=== PATIENT | female | born 1980 | race Caucasian/White ===

== ENCOUNTER 2016-06-15 23:28 | Inpatient (IN) | payer OTHER ==
--- NOTE | ~2016-06-15 | DS ---
Unit #: [id number] #: [id number] Patient: ROOPA MANE [id number] [facility] [address] [place] [address] [id number] I MR#: [id number] NAME: ROOPA MANE ROOM: 74 Age: 35 Sex: F Admission Date: 06/15/2016 : 1980 Discharge Date: 06/20/2016 Attending Physician: Chriss Cameron M.D. Primary Care Physician: Generic Doctor Not In System DISCHARGE SUMMARY REASON FOR ADMISSION The patient is a 34-year-old white female, admitted to the [facility] unit for opioid detox. HOSPITAL COURSE The patient was admitted to the [facility] unit and placed on routine detoxification protocol for opioids. Her stay in the hospital was a brief and uneventful one. She was initially exhibiting significant symptoms of withdrawal as well as dysphoria, but by 06/20/2016, the patient was much much brighter. She had made arrangements to go to [facility]" and discharge was ordered. FINAL DIAGNOSES Opioid use disorder. DISPOSITION ON DISCHARGE The patient is discharged on no psychotropic medications. She will continue Visine for dry eyes. DISCHARGE INSTRUCTIONS No dietary or physical restrictions were placed upon the patient at the time of discharge. FOLLOWUP Followup will take place through the auspices of community health resources. PROGNOSIS Her prognosis is considered fair. Dictated by... Chriss Cameron M.D. CB/mahesh TD: 06/21/2016 00:29 JOB #: [id number] Unit #: [id number] #: [id number] Patient: ROOPA MANE DISCHARGE SUMMARY X Chriss Cameron MD X DISCHARGE SUMMARY
--- NOTE | ~2016-06-15 | PN ---
Unit #: [id number] #: [id number] Patient: ROOPA MANE [id number] [facility] [address] [place] [address] [id number] I MR#: [id number] NAME: ROOPA MANE ROOM: 74 Age: 35 Sex: F Admission Date: 06/15/2016 : 1980 Attending Physician: Chriss Cameron M.D. Admitting Physician: Chriss Cameron M.D. Primary Care Physician: Kareem Doctor Not In System [facility] PROGRESS NOTES DATE 06/17/2016 DISCUSSION The patient continues to exhibit significant discomfort related to opioid withdrawal. She states today that she would like to go a treatment facility to allow her to have her two children with her. I have told her that the availability of such of a facility is to the knowledge of this physician no available to which the patient states that she is "fucked." We continue current detoxification treatment for the patient. It sounds as though she would be able to return to her brother's home upon discharge with intensive outpatient followup. Dictated by... Chriss Cameron M.D. CB/lindsey TD: 06/18/2016 00:43 JOB #: [id number] [facility] PROGRESS NOTES X Chriss Cameron MD PROGRESS NOTE
--- NOTE | ~2016-06-15 | PA ---
Unit #: [id number] #: [id number] Patient: ROOPA MANE [id number] [facility] [address] [place] [address] [id number] I MR#: [id number] NAME: ROOPA MANE ROOM: P174 Age: 35 Sex: F Admission Date: 06/15/2016 : 1980 Date of Assessment: 06/16/2016 Attending Physician: Chriss Cameron M.D. Admitting Physician: Chriss Cameron M.D. Primary Care Physician: Generic Doctor Not In System PSYCHIATRIC ASSESSMENT IDENTIFYING INFORMATION The patient is a 35-year-old white female admitted to the [facility] unit with the recurrence of opioid abuse. CHIEF COMPLAINT None given. INFORMANT The patient, reliability is fair. HISTORY OF PRESENT ILLNESS The patient is a 35-year-old white female last seen at this facility in September of 2015. She is readmitted reporting abuse of heroin for the past six months. She admitted using five grams of IV heroin on a daily basis. Per her report she had been clean and sober for eight years until she was given pain medications by her dentist. She is also reporting abuse of one to two bars of Xanax weekly and also reports occasional use of alcohol. The patient reported positive suicidal thoughts with plan to overdose. The patient has a master's degree in social work but is homeless and unemployed at this time secondary to her substance use. PAST PSYCHIATRIC HISTORY The patient was treated at this facility in September of 2015. PAST MEDICAL HISTORY Noncontributory. MEDICATIONS None. ALLERGIES None. FAMILY HISTORY Noncontributory. SOCIAL HISTORY The patient is currently homeless. Her substance use history is described previously and she is a smoker. Her education status is also described previously. MENTAL STATUS EXAMINATION At this time reveals the patient to be a soundly sleeping white female who Unit #: [id number] #: [id number] Patient: ROOPA MANE cannot aroused for further interview. ASSETS AND LIABILITIES ASSETS: High level of educational achievement. LIABILITIES: Homelessness, lack of resources. ADMITTING DIAGNOSES 1. Alcohol use disorder. 2. Opioid use disorder. 3. Dysthymic disorder. PSYCHIATRIC PLAN/TREATMENT GOALS The patient has been placed on detoxification protocol (1) both opioids and benzodiazepines. She will participate in appropriate see and milieu activities and suicidal precautions are in place. ESTIMATED LENGTH OF STAY Three to five days with followup to take place through the auspices of community mental health resources. Dictated by... Chriss Cameron M.D. DAVID/lindsey TD: 06/16/2016 23:30 JOB #: [id number] PSYCHIATRIC ASSESSMENT X Chriss Cameron MD X PSYCHIATRIC ASSESSMENT
--- NOTE | ~2016-06-15 | PN ---
Unit #: [id number] #: [id number] Patient: ROOPA MANE [id number] [facility] [address] [place] [address] [id number] I MR#: [id number] NAME: ROOPA MANE ROOM: [facility] Age: 35 Sex: F Admission Date: 06/15/2016 : 1980 Attending Physician: Chriss Cameron M.D. Admitting Physician: Chriss Cameron M.D. Primary Care Physician: Kareem Doctor Not In System [facility] PROGRESS NOTES DATE 06/19/2016 DISCUSSION The patient seems a bit brighter today but continues to complain of significant GI discomfort related to opiate withdrawal. I have spoken with her regarding possible a.m. discharge with IOP followup and she seems positive regarding this. Dictated by... Chriss Cameron M.D. CB/johanne TD: 06/19/2016 15:24 JOB #: [id number] [facility] PROGRESS NOTES X Chriss Cameron MD PROGRESS NOTE
--- NOTE | ~2016-06-15 | HP ---
Unit #: [id number] #: [id number] Patient: ROOPA MANE [id number] [place] [address] [id number] MR#: [id number] NAME: ROOPA MANE ROOM: P174 Age: 35 Sex: F Admission Date: 06/15/2016 : 1980 Attending Physician: Chriss Cameron M.D. Admitting Physician: Chriss Cameron M.D. Primary Care Physician: Generic Doctor Not In System HISTORY AND PHYSICAL HISTORY OF PRESENT ILLNESS The patient is a 35-year-old female admitted to [facility] on 06/15/2016 to withdrawal from heroin. PAST MEDICAL HISTORY 1. Obesity. 2. Heroin abuse. PAST SURGICAL HISTORY Gastric sleeve. SOCIAL HISTORY She is unemployed. She has a Masters in social work. She drinks six beers per week, uses five points of heroin per day and Xanax weekly. FAMILY MEDICAL HISTORY Noncontributory. ALLERGIES No known drug allergies. CURRENT MEDICATIONS The patient is not on any home medications. REVIEW OF SYSTEMS CONSTITUTIONAL: No fever or chills. HEENT: Denies any sore throat, ear pain or runny nose. CARDIOVASCULAR: Denies chest pain, irregular heart rhythm or palpitations. CHEST: Denies shortness of breath or cough. No hemoptysis. GASTROINTESTINAL: Denies nausea, vomiting, diarrhea or chronic constipation. ENDOCRINE: Denies history of increased thirst or urination. No recent significant weight loss or gain. GENITOURINARY: Denies dysuria, frequency, or hematuria. SKIN: Denies any rashes. HEMATOLOGIC: Denies history of increased bleeding or bruising. MUSCULOSKELETAL: Denies any hot, swollen joints. No generalized muscle pain. NEUROLOGIC: Denies problems with vision or speech. No frequent, severe headaches. No numbness, tingling or weakness in any extremities. Denies loss of bladder or bowel control. PHYSICAL EXAM Unit #: [id number] #: [id number] Patient: ROOPA MANE GENERAL: She is awake, alert and oriented in no acute distress. VITAL SIGNS: Temperature 98.2, heart rate 90, respiration 18, blood pressure 127/88. HEIGHT: 5'11". WEIGHT: 143 pounds. SKIN: Warm and dry without rash or lesion. HEENT: Normocephalic. TMs not viewed. Oral and nasal passages clear. Conjunctivae clear. PERRLA. EOMs intact. NECK: Supple without lymphadenopathy or thyromegaly. HEART: Regular rate and rhythm without murmur. LUNGS: Clear. ABDOMEN: Soft, nontender. : Not done. EXTREMITIES: No evidence of cyanosis, clubbing or edema. Moves all without focal deficit. NEUROLOGICAL: Grossly within normal limits. Cranial Nerves: II: Visual marin are intact. III, IV AND : Extraocular movements are intact. Pupils are equal, round and reactive to light. V: Facial sensation is grossly normal. VII: Facial movements and expression are normal. VIII: Auditory acuity grossly intact. IX, X: Uvula is midline. Phonation is normal. XI: Patient shrugs shoulders and turns head normally. XII: Tongue protrudes in the midline. Sensory and Motor Function: Sensory and motor sensation is grossly normal. Motor: moves all extremities well. IMPRESSION 1. Obesity. 2. Heroin dependence. RECOMMENDATIONS Psychiatric per psychiatrist. MEDICAL: No contraindication to participate in facility activities. MEDICAL PROGNOSIS Good. MEDICAL CONDITION Stable. Dictated by... Ricardo Stallings/lindsey TD: 06/17/2016 03:32 JOB #: [id number] Unit #: [id number] #: [id number] Patient: ROOPA MANE HISTORY AND PHYSICAL X BROOKS SANTOS APRN X HISTORY AND PHYSICAL
--- NOTE | ~2016-06-15 | PN ---
Unit #: [id number] #: [id number] Patient: ROOPA MANE [id number] [facility] [address] [place] [address] [id number] MR#: [id number] NAME: ROOPA MANE ROOM: 74 Age: 35 Sex: F Admission Date: 06/15/2016 : 1980 Attending Physician: Chriss Cameron M.D. Admitting Physician: Chriss Cameron M.D. Primary Care Physician: Kareem Doctor Not In System [facility] PROGRESS NOTES DATE 06/18/2016 DISCUSSION The patient remains abed and continues to complain of severe depressed mood as well as significant GI discomfort. I have encouraged her strongly to participate more accurately within the therapeutic milieu and will order the patient to be pushed to groups. Dictated by... Chriss Cameron M.D. CB/lindsey TD: 06/19/2016 01:19 JOB #: [id number] [facility] PROGRESS NOTES X Chriss Cameron MD PROGRESS NOTE
[2016-06-16 12:34] LABS: BASOPHIL% 0.6 % (0-2.5); DIFF IND YES; EOSINOPHIL% 1.6 % (0.0-7.0); HEMATOCRIT 25.6 % (35.0-45.0); HEMOGLOBIN 7.8 gm/dL (12.0-16.0); LYMPHOCYTE# 1.2 X10e3 (1.0-3.5); LYMPHOCYTE% 46.6 % (17.0-45.0); MEAN CELL VOLUME 66.1 FL (83-96); MEAN CORPUSCULAR HEMOGLOBIN 20.3 PG (28-34); MEAN CORPUSCULAR HGB CONC 30.6 g/dL (30-36); MEAN PLATELET VOLUME 9.6 FL (6.5-11.5); MONOCYTE# 0.2 X10e3 (0-1.0); MONOCYTE% 8.8 % (3.0-12.0); NEUTROPHIL# 1.1 X10e3 (1.5-7.1); NEUTROPHIL% 42.4 % (40-75); PLATELET COUNT 191 X10e3 (140-420); RED BLOOD COUNT 3.87 X10e (3.90-5.30); RED CELL DISTRIBUTION WIDTH 17.2 % (11.0-15.5); WHITE BLOOD COUNT 2.6 X10e3 (4.0-10.5)
[2016-06-16 12:56] LABS: PLATELET ESTIMATE NORMAL (NORMAL); POIKILOCYTOSIS MOD
[2016-06-16 13:04] LABS: ALBUMIN SERUM 3.2 g/dL (3.5-5.0); ALKALINE PHOSPHATASE 44 U/L (32-92); ALT (SGPT) 9 U/L (10-40); AST (SGOT) 12 U/L (10-42); BILIRUBIN,TOTAL 0.7 mg/dL (0.2-2.0); BLOOD UREA NITROGEN 12 mg/dL (9-23); CALCIUM SERUM 8.1 mg/dL (8.4-10.2); CARBON DIOXIDE 24 mmol/L (22-31); CHLORIDE 109 mmol/L (100-111); CREATININE SERUM 0.5 mg/dL (0.6-1.4); GLOM FILT RATE Estimated ABOVE60 mL/min (>60); GLUCOSE FASTING 80 mg/dL (70-110); POTASSIUM 3.3 mmol/L (3.5-5.1); PROTEIN TOTAL SERUM 6.2 g/dL (6.0-8.3); SODIUM 136 mmol/L (135-145)
[2016-06-16 13:09] LABS: THYROID STIMULATING HORMONE 2.07 uIU/ml (0.34-5.60)
[2016-06-16 13:15] LABS: FREE THYROXIN (T4) 0.8 ng/dL (0.58-1.64)
[2016-06-17 16:48] LABS: URINE APPEARANCE CLOUDY; URINE BILIRUBIN NEG (NEG); URINE BLOOD NEG (NEG); URINE COLOR DK YELLOW; URINE GLUCOSE NEG (NEG); URINE KETONE NEG (NEG); URINE LEUKOCYTE ESTERASE NEG (NEG); URINE NITRATE NEG (NEG); URINE PROTEIN NEG (NEG); URINE SPECIFIC GRAVITY 1.026 (1.003-1.035)
[2016-06-17 17:11] LABS: AMPHETAMINE NEG (NEG); BARBITURATES NEG (NEG); BENZODIAZEPINES POS (NEG); COCAINE NEG (NEG); MARIJUANA NEG (NEG); OPIATES POS (NEG); TRICYCLIC ANTIDEPRESSANTS NEG (NEG); U METHADONE NEG (NEG)
== END 2016-06-20 17:10 | disposition home or self-care (01) | DRG 897 ==
LOC: P1E 23:28
PROVIDERS: Specialist
PROC: HZ2ZZZZ Detoxification Services for Substance Abuse Treatment (ICD-10-PCS; principal; 2016-06-15)
DX: F10.10 Alcohol abuse, uncomplicated (principal); F11.10 Opioid abuse, uncomplicated; F34.1 Dysthymic disorder
CPT/HCPCS: 80053; 80307; 81003; 84439; 84443; 85025; 86592